=== PATIENT | male | born 1990 | race American Indian/Alaskan Native ===

== ENCOUNTER 2020-12-09 01:00 | Emergency (ER) | payer BC ==
--- NOTE | 2020-12-09 02:10 | Event Note ---
ED Screening Note ED Screening Note: 30-year-old obese -[place] male that emerge department complaining of having a couple day history of sore throat with some odynophagia but no dysphagia. Reports no fever, chills, sweats. Reports no chest pain no palpitations. States that while he was woke with was reportedly walking in the house he had 2 syncopal episodes witnessed by a friend of an unknown duration. No traumatic injuries were sustained during the reported syncopal episodes. Reports no chest pain or palpitations. This initial assessment/diagnostic orders/clinical plan/treatment(s) is/are subject to change based on patients health status, clinical progression and re- assessment by fellow clinical providers in the ED. Further treatment and workup at subsequent clinical providers discretion. Patient/guardian urged not to elope from the ED as their condition may be serious if not clinically assessed and managed. Initial orders include:
[2020-12-09] MEDS ORDERED: KETOROLAC 30 MG/1 ML INJ IV ONE (02:20)
[2020-12-09] MEDS ORDERED: SODIUM CHLORIDE 0.9% 1000 ML 1,000 ML IV ONE (02:20)
[2020-12-09] MEDS ORDERED: dexAMETHasone 20 MG/5 ML VIAL IV ONE (02:20)
--- NOTE | 2020-12-09 03:32 | Emergency Department Report ---
ED Syncope HPI - General Chief Complaint: Syncope Stated Complaint: SOB, JENSEN Time Seen by Provider: 12/09/20 02:15 - History of Present Illness Initial Comments: Patient is a 30-year-old F [place] male who is presenting with sore throat. States sore throat is been present for 2 days. Is progressively worsening. Has pain with swallowing that is estimated at 6 out of 10 in severity. Denies any fever body aches cough or congestion. Patient states he has eaten and drinking less today. Patient states he got up to go upstairs today and upon standing felt dizzy and collapsed to the ground. Does not make any mention of any loss of consciousness. Once he got up he felt dizzy again and then was brought to the emergency department. - Related Data Allergies/Adverse Reactions: Allergies No Known Allergies Allergy (Unverified 12/09/20 02:02) Home Medications: Ambulatory Orders predniSONE [Deltasone] 20 mg PO QDAY #5 tab 12/09/20 traMADoL [Ultram] 50 mg PO Q6HR PRN #10 tablet 12/09/20 ED Review of Systems ROS: Stated complaint: SOB, JENSEN Other details as noted in HPI Comment: All other systems reviewed and negative ED Past Medical Hx - Past Medical History Previous Medical History?: Yes Additional medical history: Morbid Obesity. - Surgical History Past Surgical History?: No - Social History Smoking Status: Never Smoker Substance Use Type: None - Medications Home Medications: Home Medications Medication Instructions Recorded Confirmed Last Taken Type predniSONE [Deltasone] 20 mg PO QDAY #5 tab 12/09/20 Unknown Rx traMADoL [Ultram] 50 mg PO Q6HR PRN #10 tablet 12/09/20 Unknown Rx ED Physical Exam - General Limitations: No Limitations General appearance: alert, in no apparent distress - Head Head exam: Present: atraumatic, normocephalic - Eye Eye exam: Present: normal appearance - ENT ENT exam: Present: mucous membranes moist. Absent: normal orophraynx - Expanded ENT Exam Expanded Throat exam: Positive: tonsillar erythema, tonsillomegaly. Negative: tonsillar exudate - Neck Neck exam: Present: normal inspection - Respiratory Respiratory exam: Present: normal lung sounds bilaterally. Absent: respiratory distress, wheezes, rales, rhonchi - Cardiovascular Cardiovascular Exam: Present: regular rate, normal rhythm. Absent: systolic murmur, diastolic murmur, rubs, gallop - GI/Abdominal GI/Abdominal exam: Present: soft, normal bowel sounds - Rectal Rectal exam: Present: deferred - Extremities Exam Extremities exam: Present: normal inspection - Back Exam Back exam: Present: normal inspection - Neurological Exam Neurological exam: Present: alert, oriented X3 - Psychiatric Psychiatric exam: Present: normal affect, normal mood - Skin Skin exam: Present: warm, dry, intact, normal color. Absent: rash ED Course Vital Signs 12/09/20 01:56 Temperature 98.1 F Pulse Rate 87 Respiratory 20 Rate Blood Pressure 152/94 O2 Sat by Pulse 96 Oximetry ED Medical Decision Making - Lab Data Lab Results 12/09/20 Range/Units 02:50 Group A Strep Rapid Negative (Negative) - Medical Decision Making Patient is sore throat likely viral however the course of the rapid strep could have been a false negative. Does have good amount of erythema and some palatal petechiae suggestive of strep. Cultures have been sent. We will assume that the patient has a viral infection however until cultures return. Critical care attestation.: If time is entered above; I have spent that time in minutes in the direct care of this critically ill patient, excluding procedure time. ED Disposition Clinical Impression: Near syncope Pharyngitis Qualifiers: Pharyngitis/tonsillitis etiology: unspecified etiology Qualified Code(s): J02.9 - Acute pharyngitis, unspecified Disposition: - TO HOME OR SELFCARE Is pt being admited?: No Does the pt Need Aspirin: No Condition: Stable Instructions: Pharyngitis, [id number], Syncope, [id number] Referrals: PRIMARY CARE, [Primary Care Provider] - 3-5 Days Time of Disposition: 03:36
[2020-12-09] MEDS ORDERED: HYDROcodone/ACETAMINOPHEN 5-325 MG TAB PO ONE (03:34)
[2020-12-09 04:37] VITALS: BP 125/64
== END 2020-12-09 04:23 | disposition home or self-care (01) ==
LOC: ED 01:00
DX: J02.9 Acute pharyngitis, unspecified (principal); R55 Syncope and collapse; E66.01 Morbid (severe) obesity due to excess calories; Z68.42 Body mass index [BMI] 45.0-49.9, adult; Z79.899 Other long term (current) drug therapy
CPT/HCPCS: 87116; 87430; 93005; 96374; 96375; 99283; J1100; J1885; J7030